=== PATIENT | male | born 1970 | race Caucasian/White ===

== ENCOUNTER → 2018-02-22 | Outpatient (CLI) | payer MEDICARE ==
[~2018-02-22] MED LIST: BARIUM SULFATE 176 GM BTL PO ONE; BARIUM SULFATE 340 GM POWD ONE
--- NOTE | 2018-02-22 17:59 | RADIOLOGY IMAGING REPORT ---
FACILITY: [facility] PATIENT NAME: Jovan Cao : 1970 MR: [id number] V: [id number] EXAM DATE: ORDERING PHYSICIAN: DOMI HYDE TECHNOLOGIST: Location: [facility] Patient: Jovan Cao : 1970 Visit/Account:[id number] Date of Sevice: 02/22/2018 Exam type: UPPER GI SERIES W/O AIR History: History of gastric bypass, recent weight gain, pain after eating Comparison: None. Findings: Preliminary unclaimed property manager film of abdomen reveals a large amount of fecal material throughout the colon which can be seen with constipation. Double contrast upper GI series was performed with thick and thin barium there postsurgical changes f rom a gastric bypass. There is no narrowing at the gastroenteric anastomotic site barium flowed free ly from the gastric pouch into the proximal small bowel. There is no narrowing or mucosal erosion of the esophagus. There is a tiny persistent collection of barium in the proximal small bowel at the a nastomosis best seen in series 13 and 14. This could potentially represent tiny ulcer crater. Given patient's symptoms of pain endoscopy may be helpful. Gastroesophageal reflux was not observed. The total fluoroscopy dose area product was 1687.17 micro-Odonnell per meter squared IMPRESSION: 1. Post surgical changes from a gastric bypass. The gastroenteric anastomosis is widely patent. There is a tiny persistent collection of barium in the proximal small bowel at the anastomosis as alvina cribed above. This could potentially represent a tiny ulcer crater. Given the patient's symptoms of pain endoscopy may be helpful. Report Dictated By: Cortney Brown MD at 02/22/2018 5:50 PM Report E-Signed By: Cortney Brown MD at 02/22/2018 5:55 PM WSN:[email or web address]
== END ==
LOC: RAD 08:58
PROVIDERS: ATTEND Surgery
DX: R63.5 Abnormal weight gain (principal); R10.9 Unspecified abdominal pain; Z98.84 Bariatric surgery status
CPT/HCPCS: 74240

== ENCOUNTER → 2018-03-01 | Day surgery (SDC) | payer MEDICARE, OTHER ==
[~2018-03-01] VITALS: Ht 188 cm; Wt 122.5 kg
[~2018-03-01] MED LIST changes: +AMPH20TA18 PO; -BARIUM SULFATE 176 GM BTL PO ONE; -BARIUM SULFATE 340 GM POWD ONE; +BUPR-124 PO; +GLIP-152 PO; +GLYCOPYRROLATE 0.2MG/ML 1 ML INJ IVP ONE; +LIDOCAINE MPF 1% 5 ML VIAL ONE; +LIDOCAINE/SOD BICARB 8.4% SYR ID ONE; +LOSA100T67 PO; +METF-420 PO; +NORMOSOL R SOLN(*) 1000 ML BAG 1,000 ML IV PRN; +PANT40TA65 PO; +PROPOFOL EMUL(*) 10MG/ML 20 ML 60 ML ONE; +SUCR1TAB85 PO; +VENL100T22 PO
--- NOTE | 2018-03-01 07:09 | Post Operative Progress Note ---
Post Operative Progress Note Date: March 01, 2018 Time: 10:25 Surgeon: chris Anesthesia: dr jaquez Pre-Op Diagnosis: epigastric pain and abnormal ugi series Post-Op Diagnosis: ulceration in small bowel near the anastomosis Procedure(s): gastroscopy DOMI HYDE MD March 01, 2018 07:09
--- NOTE | 2018-03-01 07:10 | Short(Outpt) Discharge Summary ---
Discharge Summary Reason for Hosp/Final Diag: (1) Abnormal upper gastrointestinal barium series Hospital Course & Plan: ulceration in small bowel just distal to anastomosis Departure Discharge to: Home Discharge Instructions Home Meds Reported Medications Venlafaxine Hcl (VENLAFAXINE HCL) 100 Mg Tablet, 100 MG PO TID 02/26/18 Glipizide (GLIPIZIDE) 5 Mg Tablet, 5 MG PO DAILY 02/26/18 Bupropion Hcl (BUPROPION XL) 150 Mg Tab.er.24h, 150 MG PO BID, #10 TAB 02/26/18 Metformin Hcl (METFORMIN HCL) 1,000 Mg Tablet, 1 TAB PO BID, TAB 02/26/18 Losartan Potassium (LOSARTAN POTASSIUM) 100 Mg Tablet, 100 MG PO QDAY 02/26/18 Amphet Asp/Amphet/D-Amphet (ADDERALL 20 MG TABLET) 20 Mg Tablet, 20 MG PO BID 02/26/18 Diet: Regular Activity: As Tolerated Special Instructions: scripts for protonix and carafate DOMI HYDE MD March 01, 2018 07:10
[2018-03-01 09:54] VITALS: BP 141/97
[2018-03-01 10:26] VITALS: BP 140/101
[2018-03-01 10:52] VITALS: BP 129/99
[2018-03-01 11:15] VITALS: BP 128/66
[2018-03-01 11:28] VITALS: BP 143/89
[2018-03-01 11:29] VITALS: BP 129/96
--- NOTE | 2018-03-01 17:16 | OPERATIVE REPORT 1 ---
EVENT DATE: March 01, 2018 SURGEON: Justin Lopez MD ANESTHESIOLOGIST: Tyrone Levine MD ANESTHESIA: Sedation. PREOPERATIVE DIAGNOSIS Abnormal upper gastrointestinal series. POSTOPERATIVE DIAGNOSIS He has an ulceration in the small bowel just distal to the anastomosis with the stomach. PROCEDURE PERFORMED Upper endoscopy. DESCRIPTION OF PROCEDURE The patient was placed in the left lateral decubitus position and given intravenous sedation. Flexible gastroscope was inserted and advanced in the esophagus. Esophagus appeared to be normal. GE junction was at 45 cm and distinct. He had a small gastric pouch. No inflammation or irritation was noted. We identified the anastomosis. This opened nicely and let us through. He had a loop of small bowel attached to the stomach. We could look down the efferent and afferent limbs. He had inflammation and irritation at that juncture, but it was widely patent. No active bleeding. No narrowing was noted. Procedure was then terminated. Patient tolerated the procedure well. No apparent complication. [facility]
== END ==
LOC: OR 00:31
PROVIDERS: ATTEND Surgery
DX: K63.3 Ulcer of intestine (principal); E11.9 Type 2 diabetes mellitus without complications
CPT/HCPCS: 36416; 43235; 82948; J2001; J2704; J3490